=== PATIENT | female | born 1960 | race Caucasian/White ===

== ENCOUNTER 2024-05-09 20:14 | Emergency (ER) | payer OTHER, MEDICARE ==
[~2024-05-09] VITALS: Ht 162.6 cm; Wt 72.6 kg
--- NOTE | 2024-05-09 20:43 | ERN ---
ED Note History of Present Illness Stated Complaint: ABDOMINAL PAIN, NAUSEA/VOMITING Chief Complaint: Abdominal Pain Time Seen by MD: 20:23 Dictation: PATIENT IS A 63-YEAR-OLD FEMALE COMING IN OVER [facility] WITH COMPLAINTS OF RIGHT UPPER QUADRANT PAIN WITH NAUSEA VOMITING. ONSET WAS TODAY NO FEVER NO CHILLS NO CHEST PAIN NO BACK PAIN NO SOB. SHE STATES SHE HAS HAD NO SURGERIES ON HER ABDOMEN. Allergies: Coded Allergies: Penicillins (Unverified Allergy, Unknown, 05/09/24) Past Medical History Past Medical History: Anxiety, Bipolar, Depression, Hypertension Additional Past Medical Hx: PTSD Surgical History: None History: Not Applicable RN Note Reviewed/Agreed w/PFSH: Yes Review of System Dictation CONSTITUTIONAL: NEGATIVE EXCEPT FOR HPI HEAD/FACE: NEGATIVE EXCEPT FOR HPI EENT: NEGATIVE EXCEPT FOR HPI RESPIRATORY: NEGATIVE EXCEPT FOR HPI GASTROINTESTINAL/ABDOMINAL: NEGATIVE EXCEPT FOR HPI RIGHT UPPER QUADRANT PAIN WITH NAUSEA VOMITING GENITOURINARY: NEGATIVE EXCEPT FOR HPI MUSCULOSKELETAL: NEGATIVE EXCEPT FOR HPI INTEGUMENTARY: NEGATIVE EXCEPT FOR HPI NEUROLOGICAL/PSYCH: NEGATIVE EXCEPT FOR HPI HEMATOLOGIC/LYMPHATIC: NEGATIVE EXCEPT FOR HPI ALL SYSTEMS NEGATIVE, EXCEPT NOTED ABOVE. 13 POINT REVIEW OF SYSTEMS ASSESSED AND ALL NEGATIVE EXCEPT FOR ABOVE. Initial Vital Sign VS Vital Signs Date Time Temp Pulse Resp B/P (MAP) Pulse Ox O2 Delivery O2 Flow Rate FiO2 05/09/24 20:15 98.2 86 20 170/90 99 Room Air 0 05/09/24 22:00 21 Physical Exam Dictation VITAL SIGNS REVIEWED GENERAL APPEARANCE: ALERT, ORIENTED X 3, MODERATE ACUTE DISTRESS, WELL DEVELOPED, NOURISHED. HEAD AND FACE: NON-TRAUMATIC. EYES: PERRL, PINK CONJUNCTIVAS, EYELID NO TRAUMA, ANTERIOR CHAMBER WITH ARCUS SENILIS. EARS: PINNAS INTACT AND NO SIGNS OF TRAUMA OR ERYTHEMA EAR CANALS CLEAR AND NO DISCHARGE TM NO ERYTHEMA NOSE: NO DISCHARGE, NO BLEEDING. OROPHARYNX: MOUTH NORMAL, TONGUE PINK, PHARYNX CLEAR,NO ERYTHEMA, TONSILS NO EXUDATES, NO ABSCESSES NOTED, MUCOUS MEMBRANE MOIST NECK: SUPPLE, NON-TENDER, NO THYROMEGALY, NO MASSES, NO JVD, NO BRUITS BREAST:DEFERRED CHEST:NO TENDERNESS, NO CREPITUS, NO PARADOXICAL MOVEMENT, NO RETRACTIONS LUNGS:CLEAR, WELL-VENTILATED, SYMMETRIC, NO RALES, NO WHEEZING, NO RHONCHI, NO STRIDOR, GOOD BREATH SOUNDS BILATERALLY HEART: REGULAR RATE, REGULAR RHYTHM, NO MURMUR, NO GALLOPS VASCULAR: NO PERIPHERAL EDEMA, ABDOMEN: SOFT, POSITIVE BOWEL SOUNDS, NONDISTENDED, NO GUARDING, MILD RIGHT UPPER QUADRANT PAIN WITHOUT A TRUE ISAACS'S. NO REBOUND TENDERNESS. PATIENT IS ACTIVELY NAUSEATED AND EXAM RECTAL: DEFERRED GENITAL: DEFERRED NEUROLOGICAL: NORMAL SPEECH, MOTOR FUNCTION INTACT, SENSORY FUNCTION INTACT MUSCULOSKELETAL: NECK NONTENDER, FULL RANGE OF MOTION, BACK NONTENDER, FULL RANGE OF MOTION, EXTREMITIES: NONTENDER, FULL RANGE OF MOTION SKIN: COLOR PINK, DRY, NO TURGOR, NO RASH, NO LACERATIONS, NO ABRASIONS, NO CONTUSIONS. LYMPHATIC: DEFERRED Results (Laboratory/Radiology) Laboratory/Radiology Laboratory Tests Test 05/09/24 21:46 White Blood Count 6.9 K/uL (4.8-10.8) Red Blood Count 3.43 MIL/uL (4.00-5.50) L Hemoglobin 11.0 g/dL (12.0-16.0) L Hematocrit 32.6 % (36-48) L Mean Corpuscular Volume 95.0 fL (79-99) Mean Corpuscular Hemoglobin 32.1 pg (27.0-33.0) Mean Corpuscular Hemoglobin Concent 33.7 g/dL (32.0-36.0) Red Cell Distribution Width 13.2 % (11.0-15.5) Platelet Count 139 K/uL (130-400) Mean Platelet Volume 11.2 fL (7.5-10.5) H Immature Granulocyte % (Auto) 0.6 % (0-1) Neutrophils (%) (Auto) 79.1 % (40.0-77.0) H Lymphocytes (%) (Auto) 13.3 % (21.0-51.0) L Monocytes (%) (Auto) 5.8 % (3.0-13.0) Eosinophils (%) (Auto) 0.9 % (0.0-8.0) Basophils (%) (Auto) 0.3 % (0.0-5.0) Neutrophils # (Auto) 5.4 K/uL (1.8-7.7) Lymphocytes # (Auto) 0.9 K/uL (1.0-4.8) L Monocytes # (Auto) 0.4 K/uL (0.1-1.0) Eosinophils # (Auto) 0.06 K/uL (0.00-0.70) Basophils # (Auto) 0.02 K/uL (0.00-0.20) Absolute Immature Granulocyte (auto 0.04 K/uL (0-1) Nucleated Red Blood Cells 0.0 % (0.0-0.19) Sodium Level 139 mmol/L (136-145) Potassium Level 3.3 mmol/L (3.5-5.1) L Chloride Level 98 mmol/L (101-111) L Carbon Dioxide Level 34 mmol/L (21-32) H Blood Urea Nitrogen 20 mg/dL (7-18) H Creatinine 1.0 mg/dL (0.5-1.0) Glomerular Filtration Rate Calc 64 mL/min (>90) Random Glucose 108 mg/dL (70-105) H Total Calcium 10.4 mg/dL (8.5-10.1) H Lipase 103 U/L (16-77) H Gallbladder ultrasound demonstrates sludge without pericholecystic fluid mildly distended Common bile duct normal Labs Reviewed?: Yes ED Course ED Course Orders Procedure Category Date Status Time Cbc With Differential LAB 05/09/24 Complete 20:39 Urinalysis Profile LAB 05/09/24 Logged 20:39 Us Abdominal Ruq\Ltd US 05/09/24 Resulted 20:39 0.9%Nacl 1000ml (Ns PHA 05/09/24 Complete 1000ml) 21:00 Ketorolac PHA 05/09/24 Complete Tromethamine 30mg/Ml 21:00 Ondansetron 4mg Inj PHA 05/09/24 Complete (Zofran 4mg Inj) 21:00 Lipase LAB 05/09/24 Complete 20:39 Basic Metabolic Panel LAB 05/09/24 Complete 20:39 Famotidine 20mg Vial PHA 05/09/24 Complete (Pepcid 20mg Vial) 21:00 Current Medications Medications (Trade) Dose Ordered Sig/Nyla Route PRN Reason Start Time Stop Time Status Last Admin Dose Admin Famotidine (Pepcid 20mg Vial) 20 mg ONCE ONCE IV 05/09/24 21:00 05/09/24 21:01 DC 05/09/24 22:10 Ketorolac Tromethamine (toRADol) 30 mg ONCE ONCE IVP 05/09/24 21:00 05/09/24 21:01 DC 05/09/24 22:10 Ondansetron HCl (zoFRAN 4MG INJ) 4 mg ONCE ONCE IVP 05/09/24 21:00 05/09/24 21:01 DC 05/09/24 22:09 Sodium Chloride 1,000 ml @ 0 mls/hr ONCE ONCE IV 05/09/24 21:00 05/09/24 21:01 DC 05/09/24 22:11 Vital Signs Date Time Temp Pulse Resp B/P (MAP) Pulse Ox O2 Delivery O2 Flow Rate FiO2 05/09/24 22:00 98.4 86 20 168/86 99 Room Air* 0 21 05/09/24 20:15 98.2 86 20 170/90 99 Room Air 0 2218/PATIENT STATES SHE FEELS MARKEDLY BETTER AFTER FLUIDS ZOFRAN AND PEPCID. WE WILL BE DISCHARGED HOME WITH ONDANSETRON/OMEPRAZOLE. Medical Decision Making MDM MDM: DIFFERENTIAL DIAGNOSIS: CHOLELITHIASIS/CHOLEDOCHOLITHIASIS/GASTRITIS/PANCREATITIS/ALCOHOL ABUSE/UTI/ELECTROLYTE IMBALANCE/DEHYDRATION RATIONALE: TESTS CONSIDERED AND ORDERED SECONDARY TO SHARED DECISION MAKING INCLUDE: RADIOLOGY/LABS PREVIOUS OUTSIDE RECORDS REVIEWED: OLD ER VISITS. RISK OF COMPLICATION AND/OR MORBIDITY OR MORTALITY OF PATIENT MANAGEMENT: NONE MEDICATIONS-PER MEDICATION RECONCILIATION NEED FOR HOSPITALIZATION: PATIENT DOES NOT MEET CRITERIA FOR HOSPITALIZATION. NO NEED FOR EMERGENCY MAJOR/MINOR SURGERY: NO THERE ARE NO SOCIAL CONCERNS WITH THIS PATIENT. PRESCRIPTION DRUG MANAGEMENT STOP ALCOHOL, ONDANSETRON AND OMEPRAZOLE. PRESCRIPTIONS WILL INCLUDE SYMPTOMATIC CARE PATIENT'S PRIOR EXTERNAL MEDICAL RECORDS FROM OTHER ER VISITS WERE REVIEWED BY ME INDICATED. PRIOR TESTING AND RESULTS FROM PREVIOUS VISITS WERE REVIEWED. PRIOR TESTS WERE TAKEN INTO ACCOUNT WITH MEDICAL DECISION MAKING AND RESOURCE UTILIZATION, INDEPENDENT HISTORIAN/HISTORIANS WERE USED TO OBTAIN COMPLETE MEDICAL HISTORY. I INDEPENDENTLY INTERPRETED THE TEST THAT WERE PERFORMED, RESULTS WERE REVIEWED BY ME AND CONSIDERED FINDINGS ON RADIOLOGY IF ORDERED. MEDICAL MANAGEMENT AND EXAMINATION INTERPRETATION DISCUSSIONS WERE HAD BY ME WITH OTHER QUALIFIED HEALTHCARE PROFESSIONALS INDICATED FOR THE PATIENT'S CARE. DX & DISP Disposition: Discharge Departure Impression: Primary Impression: Gallbladder sludge Additional Impressions: Nausea & vomiting, Hypokalemia, Dehydration, Elevated lipase, History of alcohol abuse Condition: Stable Scripts Dicyclomine HCl (Bentyl) 20 Mg Tab 20 MG PO Q6HPRN PRN for RIGHT UPPER QUADRANT PAIN, #15 TAB Prov: RHEINER,CHUYITA P POST ACUTE CARE NURSE 05/09/24 Ondansetron (Ondansetron Odt) 4 Mg Tab.rapdis 4 MG PO Q6HPRN PRN for nausea, #16 TAB 0 Refills Prov: CHUYITA PATRICK NP 05/09/24 Omeprazole (Omeprazole) 40 Mg Capsule.dr 1 CAP PO DAILY for 30 Days, #30 CAP 0 Refills Prov: CHUYITA PATRICK NP 05/09/24 Additional Instructions: FOLLOW-UP WITH PRIMARY CARE PROVIDER IN 1 TO 2 DAYS. TAKE MEDICATIONS DIRECTED HERE IN THE EMERGENCY ROOM. OKAY TO CONTINUE HOME MEDICATIONS UNLESS OTHERWISE DISCUSSED DURING YOUR VISIT IN THE EMERGENCY ROOM TODAY. RETURN TO YOUR NEAREST EMERGENCY ROOM IF SYMPTOMS WORSEN OR IF THERE IS NO IMPROVEMENT. CALL 911 IF YOU NEED IMMEDIATE ASSISTANCE. TAKE TYLENOL OR MOTRIN [id number] NEEDED AND IF NO CONTRAINDICATIONS ARE PRESENT. INCREASE ORAL HYDRATION. A WOUND CULTURE OR URINE CULTURE WAS ORDERED HERE IN THE EMERGENCY ROOM DEPARTMENT PLEASE FOLLOW-UP WITH PRIMARY CARE PROVIDER AND ADVISE THEM TO GET REPEAT PORTS FROM OUR FACILITY. IF YOU HAD ANY WENDY WRAP/SPLINTS THAT WERE APPLIED HERE, PLEASE DO NOT REMOVE THEM UNTIL YOU SEE YOUR PRIMARY CARE OR SPECIALTY. TAKE OMEPRAZOLE DAILY DIRECTED. SUGGEST LOW-FAT DIET. INCREASE FLUID INTAKE. SEE YOUR PRIMARY CARE DOCTOR FOR FOLLOW UP SOON POSSIBLE. MEDICALLY CLEAR FOR PSYCHIATRIC TREATMENT Referrals: NONE (PCP) Time of Disposition: 22:24 I have reviewed the case, and I agree with, Diagnosis and Plan CHUYITA PATRICK NP May 09, 2024 20:43
--- NOTE | 2024-05-09 20:54 | NUR ---
PATIENT OFF LOADED TO HALLWAY C2; PATIENT COMES FROM [facility] WITH SITTER
--- NOTE | 2024-05-09 21:42 | HMCIMG ---
ULTRASOUND ABDOMEN LIMITED INDICATION: Right upper abdominal pain COMPARISON: None FINDINGS: The liver is coarse in echotexture and nodular in contour; no focal lesion demonstrated. Liver length is measured at 17.6 cm. Main portal vein is patent, and normal direction of vascular flow demonstrated. The common bile duct diameter measures 4.0 mm. Gallbladder is slightly distended, and small amount of sludge demonstrated, including small echogenic shadowing stone, but no associated pericholecystic fluid. No sonographic Fonseca's sign elicited by the ultrasound looping machine operator. Wall thickness measures 3.0 mm. Visible portions of the pancreas appear normal. The right kidney measures 10.4 x 4.7 x 3.7 cm,and is normal in echogenicity, without evidence for hydronephrosis.No shadowing stones demonstrated. No free fluid demonstrated. IMPRESSION: Cholelithiasis without cholecystitis. Findings suggesting cirrhotic liver or other underlying hepatocellular disease process.
[2024-05-09 21:52] LABS: BASOPHILS # (AUTO) 0.02 K/uL (0.00-0.20); BASOPHILS % (AUTO) 0.3 % (0.0-5.0); EOSINOPHILS # (AUTO) 0.06 K/uL (0.00-0.70); EOSINOPHILS % (AUTO) 0.9 % (0.0-8.0); HEMATOCRIT 32.6 % (36-48); IMMATURE GRANULOCYTE ABSOLUTE 0.04 K/uL (0-1); LYMPHOCYTES # (AUTO) 0.9 K/uL (1.0-4.8); LYMPHOCYTES % (AUTO) 13.3 % (21.0-51.0); MEAN CORPUSCULAR HEMOGLOBIN 32.1 pg (27.0-33.0); MEAN CORPUSCULAR HGB CONC 33.7 g/dL (32.0-36.0); MONOCYTES # (AUTO) 0.4 K/uL (0.1-1.0); MONOCYTES % (AUTO) 5.8 % (3.0-13.0); NEUTROPHILS # (AUTO) 5.4 K/uL (1.8-7.7); NEUTROPHILS % (AUTO) 79.1 % (40.0-77.0); PLATELET COUNT (AUTO) 139 K/uL (130-400); RED BLOOD CELL COUNT(AUTO) 3.43 MIL/uL (4.00-5.50); RED CELL DISTRIBUTION WIDTH 13.2 % (11.0-15.5); WHITE BLOOD COUNT (AUTO) 6.9 K/uL (4.8-10.8)
[2024-05-09 22:02] LABS: POTASSIUM 3.3 mmol/L (3.5-5.1)
[2024-05-09] MEDS: ondanSETRON 4MG INJ IVP ONE (22:09)
[2024-05-09] MEDS: FAMOTIDINE 20MG VIAL IV ONE (22:10)
[2024-05-09] MEDS: ketOROlac 30MG VIAL (30MG/ML) IVP ONE (22:10)
[2024-05-09] MEDS: 0.9%NACL 1000ML 1,000 ML IV ONE (22:11)
[2024-05-09] MEDS ORDERED: DICY20TA2 PO (22:25)
[2024-05-09] MEDS ORDERED: OMEP40CA21 PO (22:25)
[2024-05-09] MEDS ORDERED: ONDA-243 PO (22:25)
[2024-05-09 22:32] LABS: APPEARANCE,URINE CLEAR (CLEAR); BILIRUBIN,URINE NEGATIVE (NEGATIVE); COLOR,URINE LIGHT-YELLOW (YELLOW); GLUCOSE, URINE (UA) NEGATIVE (NEGATIVE); KETONES,URINE NEGATIVE (NEGATIVE); LEUKOCYTE ESTERASE ,URINE NEGATIVE Leu/uL (NEGATIVE); NITRATE,URINE NEGATIVE (NEGATIVE); OCCULT BLOOD,URINE NEGATIVE (NEGATIVE); PH,URINE 6.5 (5.0-8.0); PROTEIN,URINE NEGATIVE (NEGATIVE); UROBILINOGEN,URINE 0.2 mg/dL (0.2-1.0)
[2024-05-09 22:34] LABS: ADD UA MICROSCOPIC NO
[2024-05-09] MEDS: PoTASSium BIcarbonate/CIT AC 25 MEQ TABLET.EFF PO ONE (22:34)
[2024-05-09 23:39] VITALS: BP 158/84; PULSE 87; RESP 18; TEMP 98.5; O2SAT 98
--- NOTE | 2024-05-09 23:42 | NUR ---
REPORT GIVEN TO YUE DELA CRUZ BY PRIMARY NURSE ABHISHEK DELA CRUZ
== END 2024-05-09 23:47 ==
LOC: EDH 20:14
DX: K82.8 Other specified diseases of gallbladder (principal); R11.2 Nausea with vomiting, unspecified; E87.6 Hypokalemia; E86.0 Dehydration; R74.8 Abnormal levels of other serum enzymes; I10 Essential (primary) hypertension; F31.9 Bipolar disorder, unspecified; Z88.0 Allergy status to penicillin
CPT/HCPCS: 99285; 96374; 76705; 96375; 96361; 80048; 83690; 85025; 81003; 36415; J1885; J3490; J7030; J2405